=== PATIENT | female | born 2005 | race Caucasian/White ===

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

== ENCOUNTER 2025-08-08 10:07 | Emergency (ER) | payer BC, SELFPAY ==
[2025-08-08 10:29] VITALS: BP 105/66; PULSE 82; RESP 16; TEMP 37.3; O2SAT 98; BMI 24.1
--- NOTE | 2025-08-08 10:37 | ED_ITS ---
HPI - Abdominal Pain General Date Seen: 08/08/25 Chief Complaint: Abdominal Pain Stated Complaint: Abdominal pain Time Seen by Provider: 08/08/25 10:37 Source: patient, RN notes reviewed and old records reviewed Mode of arrival: ambulatory Limitations: no limitations History of Present Illness HPI narrative: Sejal is a very pleasant 20-year-old female accompanied by her father who comes to the emergency room with abdominal pain. Sejal states that on Friday or 48 hours ago she had 1 hour of upper abdominal pain that went away. Yesterday Friday, it was present throughout the day and continues this morning. She describes the pain as across her entire upper abdomen. It is worsened by eating. She is not nauseated nor has she had any vomiting. She denies diarrhea and constipation. She has not had a fever. She has not felt this pain in the past. It does not seem to change with movement. She does endorse alcohol use on Friday night but states that that time the alcohol did not bother her. No past history of abdominal surgeries. No family history of early gallbladder disease. She has not been ill, has not traveled and has not been on any recent antibiotics. One week ago did have 2 days of shoveling snow but had no pain after that. Related Data Home Medications ?Medication ?Instructions ?Recorded ?Confirmed No Known Home Medications 09/03/2207/25 Allergies Allergy/AdvReac Type Severity Reaction Status Date / Time No Known Drug Allergies Allergy Verified 08/08/25 10:36 Review of Systems Status of ROS Reports: 10 or more systems reviewed and unremarkable except as noted in History and below Const Denies: fever, chills or fatigue Eyes Denies: change in vision ENMT Denies: throat pain, neck pain, throat swelling or nasal congestion Cardio Denies: chest pain, palpitations, swelling of feet/ankles, lightheadedness or shortness of breath with exertion Resp Reports: pain on inspiration (In the abdomen); Denies: shortness of breath or cough GI Reports: abdominal pain; Denies: nausea, vomiting, diarrhea, constipation or blood in stool Denies: painful urination or urinary frequency Musculo Denies: back pain, neck pain or extremity pain Neuro Denies: headache Endo Denies: fatigue Allergy/Immuno Denies: throat swelling [facility]SH [facility] Medical History Depression ?F32.A - Depression, unspecified (ICD-10) Anxiety ?F41.9 - Anxiety disorder, unspecified (ICD-10) Surgical History No significant past surgical history Social History Smoking Status: Never smoker Do you use any of these nicotine containing products: Vaping Products Second hand tobacco smoke exposure: No How often do you have a drink containing alcohol: monthly or less How often do you have six or more drinks on one occasion: Never AUDIT-C Alcohol total score: 1 Non-prescribed substance use: denies use Exam Narrative: Exam Narrative: Alert and oriented. External ears eyes nose clear. Neck is supple. Heart with regular rate and rhythm. Lungs are clear bilaterally. No CVA tenderness with percussion. Abdomen is soft. Minimal tear marketing outreach coordinator noted in the epigastrium. Lower extremities without edema. Moving all extremities without difficulty. Const: Vital Signs, click to edit/add: Vital Signs - 24 hr 08/08/25 10:29 08/08/25 11:32 08/08/25 13:13 Temperature 99.2 F Pulse Rate [Pulse Oximeter] 82 66 67 Respiratory Rate 16 16 16 Blood Pressure [Ri ght Upper Arm] 105/66 108/66 104/60 Pulse Oximetry 98 100 99 Oxygen Delivery Me thod Room Air Room Air Room Air Documenting provider has reviewed patient's vital signs: yes Course Course ED Course: Differential diagnosis includes but is not limited to biliary colic, musculoskeletal pain, colitis, gastritis, pancreatitis. Will place IV and draw labs include CBC, comprehensive, CRP, lactate, lipase. Will also obtain urinalysis as well as abdominal ultrasound. Will do a trial of Toradol 15 mg IV for discomfort. Reevaluation(s) Reevaluation #1: Patient did have relief of abdominal pain with Toradol. Given normal lab findings will do flat plate and upright in an attempt to avoid CT. CRP white count lactate all reassuring. Vital Signs Vital signs: Initial Vital Signs Temperature 99.2 F 08/08/25 10:29 Temperature Source Temporal Artery Scan 08/08/25 10:29 Pulse Rate 82 08/08/25 10:29 Respiratory Rate 16 08/08/25 10:29 Blood Pressure 105/66 08/08/25 10:29 Blood Pressure Mean 79 08/08/25 10:29 Blood Pressure Position Sitting 08/08/25 10:29 Pulse Oximetry 98 08/08/25 10:29 Oxygen Delivery Method Room Air 08/08/25 10:29 Vital Signs Temperature 99.2 F 08/08/25 10:29 Pulse Rate 82 08/08/25 10:29 Respiratory Rate 16 08/08/25 10:29 Blood Pressure 105/66 08/08/25 10:29 Pulse Oximetry 98 08/08/25 10:29 Oxygen Delivery Method Room Air 08/08/25 10:29 Temperature 99.2 F 08/08/25 10:29 Pulse Rate 67 08/08/25 13:13 Respiratory Rate 16 08/08/25 13:13 Blood Pressure 104/60 08/08/25 13:13 Pulse Oximetry 99 08/08/25 13:13 Oxygen Delivery Method Room Air 08/08/25 13:13 Medications Administered Medications: Discontinued Medications Generic Name Dose Route Start Last Admin Trade Name Hi PRN Reason Stop Dose Admin Ketorolac Tromethamine 15 mg 08/08/25 10:49 08/08/25 11:29 Ketorolac 15 Mg/Ml Inj IVP 08/08/25 10:50 15 mg ONCE ONE Administration MDM - Abdominal Pain MDM Narrative Medical decision making narrative: 1. Abdominal pain-suspect some constipation given x-ray although radiologist did not feel this was excess stool burden. CBC, other laboratory values reassuring. Suggest MiraLax twice daily until stools are soft. Of course for fever, worsening pain, worsening symptoms return to the ER for further evaluation. Patient did have relief of her discomfort with Toradol here in the ED today. 2. Disposition-home at this time. Return for worsening symptoms and as needed. Medical Records Attestation: I reviewed the patient's medical records. Lab Data Attestation: I reviewed the patient's lab results. Labs: Lab Results 08/08/25 08/08/25 Range/Units 11:00 11:05 WBC 6.57 (4.50-11.00) K/uL RBC 4.25 (4.00-5.20) m/uL Hgb 12.6 (12.0-16.0) gm/dL Hct 37.5 (33.0-51.0) % MCV 88 (80-100) fL MCH 30 (26-34) pg MCHC 34 (32-36) gm/dL RDW Coeff of Rosemarie 12.3 (11.5-15.5) % Plt Count 261 (140-440) K/uL Neut % (Auto) 69.7 (42.0-72.0) % Lymph % (Auto) 22.5 (20-44) % [place] % (Auto) 6.2 (0.0-11.0) % Eos % (Auto) 0.9 (0.0-7.0) % Baso % (Auto) 0.5 (0.0-3.0) % Neut # (Auto) 4.58 (1.7-7.0) K/uL Lymph # (Auto) 1.48 (0.90-2.90) K/uL [place] # (Auto) 0.40 (0.00-0.90) K/UL Eos # (Auto) 0.06 (0.00-0.50) K/uL Baso # (Auto) 0.03 (0.00-0.30) K/uL Abs Immat Gran (auto) 0.01 (0.00-0.30) K/uL Imm/Tot Granulo (auto) 0.2 % Sodium 135 (135-149) mmol/L Potassium 3.6 (3.6-5.1) mmol/L Chloride 104 (96-114) mmol/L Carbon Dioxide 24 (20-32) mmol/L Anion Gap 7 (7-15) mEq/L BUN 8 (5-24) mg/dL Creatinine 0.5 (0.5-1.5) mg/dL Estimated Creat Clear 165.22 Estimated GFR 136 ml/min Glucose 103 (60-115) mg/dL Lactate 0.4 L (0.5-1.9) mmol/L Calcium 8.7 (8.4-10.6) mg/dL Total Bilirubin 0.5 (0.1-1.5) mg/dL AST 18 (12-35) U/L ALT 15 (4-35) U/L Alkaline Phosphatase 48 (40-150) U/L C-Reactive Protein < 0.5 L (0.5-1.0) mg/dL Total Protein 6.5 (6.0-8.3) g/dL Albumin 4.2 (3.3-5.0) g/dL Lipase 48 (23-300) U/L Urine Color Yellow (Yellow) Urine Appearance Clear (Clear) Urine pH 6.5 (5.0-8.5) Ur Specific [place] <= 1.005 (1.000-1.030) Urine Protein Negative (Negative) Urine Glucose (UA) Negative (Negative) Urine Ketones Negative (Negative) Urine Blood Negative (Negative) Urine Nitrite Negative (Negative) Urine Bilirubin Negative (Negative) Urine Urobilinogen 0.2 (0.2-1.0) Ur Leukocyte Esterase Negative (Negative) Urine RBC 0-2 (0-2) Urine WBC 0-2 (0-5) Ur Squamous Epith Cells None (None-Few) Urine Bacteria Few A (None) Urine HCG, Qual Negative (Negative) Monoscreen Negative (Negative) Imaging Data US - abdomen: Attestation: I have reviewed the pertinent imaging results. Radiologist's impression: The patient`s liver is of normal size and has uniform echogenicity. There is a normal appearance of the hepatic IVC and proximal abdominal aorta. There is no evidence of ascites. The gallbladder is of normal size and there is no evidence of intraluminal stones or sludge. The gallbladder wall measures 1 mm in thickness. The common bile duct is of normal size and measures 4 mm in diameter at the level of the matilde hepatis. The pancreas appears normal. There is no evidence of a stone or hydronephrosis within the right kidney. The right kidney measures 10.1 cm in length. IMPRESSION: Normal right upper quadrant ultrasound. Flat plate and upright x-ray: Attestation: I have reviewed the pertinent imaging results. My impression: By my read increased stool burden. Radiologist's impression: No bowel obstruction. No free air. No significant stool burden. No suspicious calcifications. Intrauterine device overlies the left of midline p ludwin. The imaged lungs are clear. The bones are unremarkable. Discharge Plan Discharge Clinical Impression: Abdominal pain Patient Disposition: Home, Self-Care Condition: Improved Additional Instructions: MiraLax twice daily until stools are soft. Note for no work today and tomorrow. Return for worsening symptoms and as needed. Prescriptions: No Action No Known Home Medications Follow Up/Referrals: Gianna Estrada MD [Primary Care Provider, Family Practice] Stand Alone Forms: Work/School Release, MyHealth Info Instructions
--- NOTE | 2025-08-08 10:49 | CRLHL7_ITS ---
For Patients: As a result of the Century Cures Act, medical imaging exams and procedure reports are released immediately into your electronic medical record. You may view this report before your referring provider. If you have questions, please contact your health care provider. INDICATION: RUQ AND EPIGASTRIC PAIN COMPARISON: none TECHNIQUE: Real time terrell scale imaging and color Doppler analysis was performed of the right upper quadrant. FINDINGS: The patient`s liver is of normal size and has uniform echogenicity. There is a normal appearance of the hepatic IVC and proximal abdominal aorta. There is no evidence of ascites. The gallbladder is of normal size and there is no evidence of intraluminal stones or sludge. The gallbladder wall measures 1 mm in thickness. The common bile duct is of normal size and measures 4 mm in diameter at the level of the matilde hepatis. The pancreas appears normal. There is no evidence of a stone or hydronephrosis within the right kidney. The right kidney measures 10.1 cm in length. IMPRESSION: Normal right upper quadrant ultrasound. Dictated by Jean Carlos Aguilar MD @ 08/08/2025 11:39:19 AM (Electronically Signed)
[2025-08-08 11:11] LABS: Lactate* 0.4 mmol/L (0.5-1.9)
[2025-08-08 11:17] LABS: Hematocrit* 37.5 % (33.0-51.0); Hemoglobin* 12.6 gm/dL (12.0-16.0); Immature Granulocytes Abs Auto 0.01 K/uL (0.00-0.30); Immature Granulocytes Pct Auto 0.2 %; Lymphocytes Absolute Auto 1.48 K/uL (0.90-2.90); Mean Corpuscular HGB Conc 34 gm/dL (32-36); Mean Corpuscular Hemoglobin 30 pg (26-34); Mean Corpuscular Volume 88 fL (80-100); RDW Coefficient of Variation % 12.3 % (11.5-15.5); Red Blood Count* 4.25 m/uL (4.00-5.20); White Blood Count* 6.57 K/uL (4.50-11.00)
[2025-08-08 11:17] LABS: Appearance Urine Clear (Clear)
[2025-08-08 11:30] LABS: Slide Review Reflex No
[2025-08-08 11:32] VITALS: BP 108/66; PULSE 66; RESP 16; O2SAT 100
[2025-08-08 11:33] LABS: Ur HCG Qualitative* Negative (Negative)
[2025-08-08 11:34] LABS: Albumin* 4.2 g/dL (3.3-5.0); Chloride* 104 mmol/L (96-114); Potassium* 3.6 mmol/L (3.6-5.1); Sodium* 135 mmol/L (135-149)
[2025-08-08 11:36] LABS: Alanine Aminotransferase* 15 U/L (4-35); Anion Gap 7 mEq/L (7-15); Aspartate Amino Transferase* 18 U/L (12-35); Blood Urea Nitrogen* 8 mg/dL (5-24); Carbon Dioxide* 24 mmol/L (20-32); Creatinine* 0.5 mg/dL (0.5-1.5); Est. Creatinine Clearance* 165.22; Estimated Glomerular Filt Rate 136 ml/min
[2025-08-08 11:37] LABS: Alkaline Phosphatase* 48 U/L (40-150); Bilirubin Total* 0.5 mg/dL (0.1-1.5); Calcium* 8.7 mg/dL (8.4-10.6); Glucose* 103 mg/dL (60-115); Total Protein* 6.5 g/dL (6.0-8.3)
[2025-08-08 11:38] LABS: Mono Screen* Negative (Negative)
--- NOTE | 2025-08-08 12:06 | CRLHL7_ITS ---
For Patients: As a result of the Century Cures Act, medical imaging exams and procedure reports are released immediately into your electronic medical record. You may view this report before your referring provider. If you have questions, please contact your health care provider. Indication: upper abd pain, flat plate and upright Technique: Upright and supine views of the abdomen/pelvis, 2 images Comparison: None Findings/Impression: No bowel obstruction. No free air. No significant stool burden. No suspicious calcifications. Intrauterine device overlies the left of midline pelvis. The imaged lungs are clear. The bones are unremarkable. Dictated by Laith Whitaker MD @ 08/08/2025 1:10:12 PM (Electronically Signed)
[2025-08-08 13:13] VITALS: BP 104/60; PULSE 67; RESP 16; O2SAT 99
== END 2025-08-08 13:35 | disposition home or self-care (01) ==
PROVIDERS: Emergency Provider Family Medicine; PCP Family Medicine
DX: R10.9 Unspecified abdominal pain (principal)
CPT/HCPCS: 36415; 74019; 76705; 80053; 81001; 81025; 83605; 83690; 85025; 86140; 86308; 87086; 96374; 99284; 99285; J1885